=== PATIENT | male | born 1965 ===

== ENCOUNTER 2020-08-20 16:46 | Outpatient (CLI) | payer BC, SELFPAY | END 2020-08-20 16:47 | disposition home or self-care (01) | LOC: ANHCOVIDVC 16:46 | PROVIDERS: PCP Family Medicine | DX: Z23 Encounter for immunization (principal) | CPT/HCPCS: 0001A; 91300 ==

== ENCOUNTER 2020-09-10 16:44 | Outpatient (CLI) | payer BC, SELFPAY | END 2020-09-10 16:45 | disposition home or self-care (01) | LOC: ANHCOVIDVC 16:44 | PROVIDERS: PCP Family Medicine | DX: Z23 Encounter for immunization (principal) | CPT/HCPCS: 0002A; 91300 ==